=== PATIENT | female | born 1975 | race Caucasian/White ===

== ENCOUNTER 2020-07-17 17:42 | Outpatient (REF) | payer OTHER, SELFPAY ==
--- NOTE | 2020-07-17 | MM_ITS ---
EXAMINATION: MM SCREENING DIGITAL BREAST TOMOSYNTHESIS, BILATERAL CLINICAL INFORMATION: Screening. Asymptomatic. The lifetime risk of breast cancer based on the Tyrer-Cuzick Model is 7%. COMPARISON: Mammography: 07/19/2019, 06/15/2018, 05/15/2017 TECHNIQUE: Digital breast tomosynthesis is performed in both the craniocaudal and mediolateral oblique views along with computer-aided detection (CAD). Synthesized 2D images are generated from the tomosynthesis. FINDINGS: There are scattered areas of fibroglandular density (ACR BI-RADS breast composition Category b). There are no significant masses, abnormal calcifications, or other abnormalities. Parenchymal pattern is similar to prior studies. No developing density. No significant changes. MM/MM tomosynthesis screening BI IMPRESSION: No significant changes from prior study. ASSESSMENT: BI-RADS 1: Negative RECOMMENDATION: Routine annual mammography screening. This patient's information was entered into a reminder system with a target due date for their next mammogram.
== END 2020-07-17 17:43 | disposition home or self-care (01) ==
LOC: HO.MAMMO 17:42
PROVIDERS: PCP Internal Medicine Medical Oncology; Visit Provider Internal Medicine Medical Oncology
DX: Z12.31 Encounter for screening mammogram for malignant neoplasm of breast (principal)
CPT/HCPCS: 77063; 77067

== ENCOUNTER 2020-08-12 11:38 | Outpatient (REF) | payer OTHER, SELFPAY | END 2020-08-12 11:39 | disposition home or self-care (01) | LOC: HO.HMGCLDS 11:38 | PROVIDERS: PCP Internal Medicine Medical Oncology; Visit Provider Internal Medicine Medical Oncology | DX: Z20.828 Contact with and (suspected) exposure to other viral communicable diseases (principal) | CPT/HCPCS: C9803; U0003 ==

== ENCOUNTER 2020-12-17 16:47 | Outpatient (REF) | payer OTHER, SELFPAY | END 2020-12-17 16:48 | disposition home or self-care (01) | LOC: HO.LNP 16:47 | PROVIDERS: Visit Provider Internal Medicine Medical Oncology | DX: J02.9 Acute pharyngitis, unspecified (principal) | CPT/HCPCS: 87071 ==

== ENCOUNTER 2020-12-24 06:51 | Outpatient (REF) | payer OTHER, SELFPAY ==
[2020-12-24 11:15] LABS: MANUAL DIFF FLAG NO
[2020-12-24 11:23] LABS: Basophils Percent Auto 0.3 % (0-2); Eosinophils Absolute Auto 0.2 X10*3/uL (0.0-0.4); Eosinophils Percent Auto 2.5 % (0-4); Hematocrit 41.3 % (37-47); Hemoglobin 13.3 g/dl (12.0-16.0); Imm Gran Abs Auto 0.01 X10*3/uL (0.00-0.03); Imm Gran Pct Auto 0.2 % (0.0-0.4); Lymphocytes Absolute Auto 1.9 X10*3/uL (1.2-4.9); Lymphocytes Percent Auto 29.6 % (20-40); Mean Corpuscular HGB Conc 32.2 g/dl (31.0-35.0); Mean Corpuscular Hemoglobin 28.1 pg (27.0-33.0); Mean Corpuscular Volume 87.1 fL (80-98); Mean Platelet Volume 9.9 fL (9.4-12.3); Monocytes Absolute Auto 0.4 X10*3/uL (0.1-1.2); Monocytes Percent Auto 6.3 % (2-11); Neutrophils Percent Auto 61.1 % (45-73); Platelet Count 291 X10*3/uL (160-400); Red Blood Count 4.74 X10*6/uL (4.20-5.50); Red Cell Distribution Width 12.7 % (11.0-16.0); White Blood Count 6.5 X10*3/uL (4.8-10.8)
[2020-12-24 11:54] LABS: Alanine Aminotransferase 10 U/L (0-31); Albumin Level 4.1 g/dL (3.5-5.0); Alkaline Phosphatase 108 U/L (39-117); Anion Gap 15 (12-20); Aspartate Amino Transferase 14 U/L (5-31); Bilirubin Total 0.3 mg/dL (0.0-1.0); Blood Urea Nitrogen 20 mg/dL (9-16); Calcium 8.8 mg/dL (8.4-10.2); Carbon Dioxide 22 mmol/L (22-29); Chloride 107 mmol/L (96-108); Cholesterol 200 mg/dL; Estimated Glomerular Filt Rate > 60; Glucose Fasting 94 mg/dL (60-99); HDL Cholesterol 45 mg/dL; LDL Cholesterol Calculated 137 mg/dl; Potassium 4.3 mmol/L (3.3-5.1); Sodium 140 mmol/L (135-145); Total Protein 6.9 g/dL (6.5-8.0); Triglycerides 94 mg/dL
[2020-12-24 12:16] LABS: Thyroid Stimulating Hormone 1.61 uIU/mL (0.32-4.0)
== END 2020-12-24 06:52 | disposition home or self-care (01) ==
LOC: HO.HMGCLDS 06:51
PROVIDERS: PCP Internal Medicine Medical Oncology; Visit Provider Internal Medicine Medical Oncology
DX: Z00.00 Encounter for general adult medical examination without abnormal findings (principal); J02.9 Acute pharyngitis, unspecified
CPT/HCPCS: 36415; 80053; 80061; 84443; 85025

== ENCOUNTER 2020-12-28 10:10 | Outpatient (REF) | payer OTHER, SELFPAY ==
--- NOTE | ~2020-12-28 | XR_ITS ---
EXAMINATION: CERVICAL SPINE AND LEFT FOOT X-RAYS CLINICAL INFORMATION: Neck pain radiating down right arm. Left heel pain. COMPARISON: None TECHNIQUE: 3 views of the cervical spine and 2 views of the left foot FINDINGS: Cervical spine: Bone alignment is normal. No fracture or dislocation is seen. There is mild degenerative spondylosis at C4-C5 and C5-C6. Disc spaces are normal. Prevertebral soft tissues are normal. Left foot: Bone alignment is normal. No fracture or dislocation is seen. The joint spaces are normal. There is a plantar calcaneal spur. There may be a soft tissue thickening of the Achilles tendon. There is increased soft tissue attenuation over the calcaneus just inferior to the Achilles tendon insertion. Some of this projects outside the skin surface and may represent overlying soft tissue dressing. Soft tissues are otherwise normal. XR/XR cervical spine 3V IMPRESSION: Cervical spine: Mild degenerative changes. Left foot: Plantar calcaneal spur. Question soft tissue thickening of the Achilles tendon. Question overlying soft tissue dressing over the posterior calcaneus inferior to the Achilles tendon insertion.
--- NOTE | ~2020-12-28 | XR_ITS ---
EXAMINATION: CERVICAL SPINE AND LEFT FOOT X-RAYS CLINICAL INFORMATION: Neck pain radiating down right arm. Left heel pain. COMPARISON: None TECHNIQUE: 3 views of the cervical spine and 2 views of the left foot FINDINGS: Cervical spine: Bone alignment is normal. No fracture or dislocation is seen. There is mild degenerative spondylosis at C4-C5 and C5-C6. Disc spaces are normal. Prevertebral soft tissues are normal. Left foot: Bone alignment is normal. No fracture or dislocation is seen. The joint spaces are normal. There is a plantar calcaneal spur. There may be a soft tissue thickening of the Achilles tendon. There is increased soft tissue attenuation over the calcaneus just inferior to the Achilles tendon insertion. Some of this projects outside the skin surface and may represent overlying soft tissue dressing. Soft tissues are otherwise normal. XR/XR foot LT min 3V IMPRESSION: Cervical spine: Mild degenerative changes. Left foot: Plantar calcaneal spur. Question soft tissue thickening of the Achilles tendon. Question overlying soft tissue dressing over the posterior calcaneus inferior to the Achilles tendon insertion.
== END 2020-12-28 10:11 | disposition home or self-care (01) ==
LOC: HO.XRAY 10:10
PROVIDERS: PCP Internal Medicine Medical Oncology; Visit Provider Internal Medicine Medical Oncology
DX: M79.672 Pain in left foot (principal); M54.2 Cervicalgia
CPT/HCPCS: 72040; 73630

== ENCOUNTER 2023-05-11 15:07 | Outpatient (REF) | payer OTHER, SELFPAY | END 2023-05-11 15:08 | disposition home or self-care (01) | LOC: HO.MAMMO 15:07 | PROVIDERS: PCP Internal Medicine Medical Oncology; Visit Provider Internal Medicine Medical Oncology | DX: Z12.31 Encounter for screening mammogram for malignant neoplasm of breast (principal) | CPT/HCPCS: 77063; 77067 ==

== ENCOUNTER → 2023-05-11 15:15 | Outpatient (BNV) | payer OTHER, SELFPAY | PROVIDERS: PCP Internal Medicine Medical Oncology; Visit Provider Radiology Diagnostic Radiology | DX: Z12.31 Encounter for screening mammogram for malignant neoplasm of breast (principal) | CPT/HCPCS: 77063; 77067 ==

== ENCOUNTER 2025-03-13 15:58 | Outpatient (REF) | payer OTHER, SELFPAY ==
--- OUTSIDE RECORDS SUMMARY | 2024-12-27 11:00 | XMS_ITS ---
Author Organization Demetrius Shell III, MD Address [address] [place] [address] Care Team Providers Care Bilingual Loan Processor Name Role Phone Demetrius Shell Primary Care Provider Allergies Allergen (clinical drug ingredient) Drug/Non Drug Allergy documented on EMR Reaction Allergy Type Onset Date Status No Known Drug Allergy Unknown Drug Allergy Active No Known Food Allergy Unknown Drug Allergy Active Seasonale Unknown Drug Allergy Active Reason For Referral Reason yearly pelvic and pa p smear Diagnosis 1 Physical exam, annua l (Z00.00) Referral Organization Demetrius Shell III, MD Referring Provider First Name Demetrius Referring Provider Last Name Sumaya Referring Provider Speciality Internal M edicine Referred Provider [facility] Referred Provider Specialty OB - Gynecol ogy General Notes Whitley Cole CMA 12/27 04:08:37 PM >Called Dr Judy Dubon office [phone] made patient appt for 01/29/2025 at 3pm information for this appt mailed to patient Referral Priority Routine Referral Appointment Date 01/29/2025 Reason colonoscopy consult Diagnosis 1 Gastroesophageal ref lux disease without esophagitis (K21.9) Referral Organization Demetrius Shell III, MD Referring Provider First Name Demetrius Referring Provider Last Name Sumaya Referring Provider Speciality Internal M edicine Referred Provider [facility], Gastroenterology Referred Provider Specialty Gastroentero logy General Notes S Whitley BAM 01/01 01:35:37 PM >ref/progress note faxed to [facility] Referral Priority Routine REASON FOR VISIT Annual Exam Social History Tobacco Use: Social History Observation Description Date Details (start date - stop date) Never Smoker NA - NA Sex Assigned At : Social History Observation Description Sex Assigned At Female Tobacco Control (Standard) Question Answer Notes Tobacco use: Nonsmoker Additional Findings: Tobacco non-user Aggressive nonsmoker AUDIT-C (Standard) Question Answer Notes Did you have a drink contain ing alcohol in the past year? Yes How often did you have six o r more drinks on one occasion in the past year? 2 to 4 times a month (2 points) How many drinks did you have on a typical day when you were drinking in the past year? 1 or 2 drinks (0 point) How often did you have a dri nk containing alcohol in the past year? Never (0 point) Points 2 Interpretation Negative Vital Signs Temperature 98.1 degrees Fahrenheit 12/28/19 25 Blood pressure systolic 142 mm Hg 12/28/19 25 Blood pressure diastolic 87 mm Hg 025 Heart Rate 74 /min 12/27/2024 Height 64 in 12/27/2024 Weight 243 lbs 12/27/2024 BMI 41.71 kg/m2 12/27/2024 Encounters Encounter Location Date Provider Diagnosis Demetrius Shell III, MD [address] [place] [address] [place] [address] 12/27/2024 Demetrius Shell Gastroesophageal ref lux disease without esophagitis K21.9 ; Other obesity due to excess calories E66.09 ; Screening mammogram for breast cancer Z12.31 and Spondylosis of cervical spine M47.812 Assessments Encounter Date Diagnosis (ICD Code) Assessment Notes Treat ment Notes Treatment Clinical Notes 12/27/2024 Gastroesophageal reflux disease without esophagitis (ICD-10 - K21.9) Her esophageal reflux is well controlled with [id number]-[id number] medication. 12/27/2024 Other obesity due to excess calories (ICD-10 - E66.09) Since her last visit she has gained 12 pounds. Body mass index is now 41.7. We discussed diet and nutrition today. We discussed the alternatives to surgery for weight loss. She does not wish to take medication at this time or to have a surgical procedure. Is going to exercise and reduce her caloric intake. 12/27/2024 Screening mammogram for breast cancer (ICD-10 - Z12.31) 12/27/2024 Spondylosis of cervical spine (ICD-10 - M47.812) This has been a problem for several years but it intensified lately. I have recommended heat and rest and naproxen. It is not severe enough to recommend a cervical collar. If it does not improve she will be referred for injections. Plan Of Treatment Pending Test Test Name Order Date PROFILE, FASTING (COMPREHENSIVE METABOLI C) 12/27/2024 CBC w DIFF 12/27/2024 Lipid Panel 12/27/2024 MM screening mammo BI 12/27/2024 Referrals Referral Date Details 12/27/2024 12/27/2024, yearly p elvic and pap smear, [facility] 12/27/2024 12/27/2024, colonosc opy consult, Gastroenterology [facility] Next Appt Details Follow Up: 1 Year, Reason: a nnual exam review labs Provider Name:Demetrius Shell, 12/31/2025 03:00:00 PM, [address] [place] [address] [address] [place], [place], [address], Progress Notes * Genet ATKINSDOB:1974 (49 yo F)Acc No.[id number]:12/27/2024 Progress Notes Patient: Genet CONDE Provider: Victoriano Shell MD :1975 A ge:49 Y S ex:Female Date:12/27/2024 Address:[address] [place], [place] [id number] Subjective: * Chief Complaints: * A nnual Exam * HPI: D epression Screening: She returns to the office at the age of 49 for her annual physical examination. She is overdue for her BREAKER OPERATOR examination a general operator work from the [facility] with an office [address] and was [place]. We are scheduling a visit for her was in near future. She is due for mammogram and this has been scheduled. She had no new complaints today. The pain in her neck has resolved and it feels fine. Her appetite is good and she is sleeping well.? She has no pain. We discussed colonoscopy. She was given a requisition for comprehensive blood work to be done in the near future. PHQ-9 L ittle interest or pleasure in doing things?Not at all F eeling down, depressed, or hopeless N ot at all T rouble falling or staying asleep, or sleeping too much S everal days F eeling tired or having little energy N ot at all P oor appetite or overeating N ot at all F eeling bad about yourself or that you are a failure, or have let yourself or your family down N ot at all T rouble concentrating on things, such as reading the newspaper or watching television N ot at all M oving or speaking so slowly that other people could have noticed; or the opposite, being so fidgety or restless that you have been moving around a lot more than usual N ot at all T houghts that you would be better off or of hurting yourself in some way N ot at all T otal Score 1 I nterpretation M inimal Depression C OVID-19 Screening: Questions H ave you had any new onset fever, chills, cough, congestion, sore throat, shortness of breath, muscle aches? N o S MINGO Questions: SDOH Questions I n the past year have you been worried about losing your housing? N o I n the past year have you or any family members you live with been unable to get any of the following when it was really needed? Check all that apply: N one * ROS: G eneral/Constitutional: pain o nly normal aches and pains. C hills d enies.?Fatigue a dmits. F ever d enies. E NT: Decreased hearing d enies. R espiratory: Cough d enies. C ardiovascular: Chest pain with exertion d enies. D yspnea on exertion?denies. S hortness of breath d enies. G astrointestinal: Constipation o ccasional. D ecreased appetite d enies. D iarrhea d enies. H eartburn c ontrolled with medications. N ausea d enies. R ectal bleeding d enies. V omiting d enies. H ematology: bruising d enies. p etechiae d enies. S wollen glands n one have been noted. G enitourinary: Frequent urination d enies. M usculoskeletal: Muscle aches d enies. P ainful joints d enies. S ciatica d enies. W eakness d enies. S kin: Itching d enies. R pradeep d enies. S kin lesion(s)?denies. N eurologic: Difficulty speaking d enies. D izziness d enies.?Headache d enies. L ow back pain d enies. P sychiatric: Depressed mood d enies. * Medical History: * Surgical History: D enies Past Surgical History * Hospitalization/Major Diagno stic Procedure: D enies Past Hospitalization * Family History: F ather: 63 yrs, hypertension, obesity. M other: alive 54 yrs, hypertension, hyperlipidemia, brain cancer. P aternal Grand Father: , stomach cancer. M aternal Grand Father: , lung cancer. M aternal Grand Mother: stomach cancer. M aternal uncle: , colon cancer. S pouse: alive. 1 brother(s) - healthy. 3 daughter(s) - healthy. . A great paternal aunt diagnosed with breast cacner. * Social History: T obacco Use: T obacco Control (Standard) T obacco use: N onsmoker A dditional Findings: Tobacco non-user A ggressive nonsmoker D rugs/Alcohol: D rugs H ave you used drugs other than those for medical reasons in the past 12 months? N o D rug/Alcohol: A KWASI-C (Standard) D id you have a drink containing alcohol in the past year? Y es H ow often did you have six or more drinks on one occasion in the past year? 2 to 4 times a month (2 points) H ow many drinks did you have on a typical day when you were drinking in the past year? 1 or 2 drinks (0 point) H ow often did you have a drink containing alcohol in the past year? N ever (0 point) P oints 2 I nterpretation N egative S he was born in [place], [place]. * Medications: D iscontinuedPriLOSEC 40 mg Capsule Delayed Release 1 capsule Orally Once a day Benzonatate 100 MG Capsule 1 capsule as needed Orally Three times a day predniSONE 50 MG Tablet 1 tablet Orally Once a day Fluticasone Propionate 50 MCG/ACT Suspension 1 spray in each nostril Nasally Once a day Ciprofloxacin-dexAMETHasone 0.3-0.1 % Suspension 4 drops into affected ear Otic Twice a day Medication List reviewed and reconciled with the patientDiscontinued PriLOSEC 40 mg Capsule Delayed Release 1 capsule Orally Once a day Discontinued Benzonatate 100 MG Capsule 1 capsule as needed Orally Three times a day Discontinued predniSONE 50 MG Tablet 1 tablet Orally Once a day Discontinued Fluticasone Propionate 50 MCG/ACT Suspension 1 spray in each nostril Nasally Once a day Discontinued Ciprofloxacin-dexAMETHasone 0.3-0.1 % Suspension 4 drops into affected ear Otic Twice a day Medication List reviewed and reconciled with the patient * Allergies: N o Known Drug AllergySeasonaleNo Known Food Allergyno[Allergies Verified] Objective: * Vitals: H t: 64, Wt: 243, BMI:41.71, BP: 142/87, HR: 74, Temp: 98.1, Wt-k.22. * Examination: G eneral Examination: GENERAL APPEARANCE: p leasant, well nourished, well developed, in no acute distress, calm and relaxed, morbidly obese, man. HEAD: a traumatic, normocephalic. EYES: e damián, perrla, anicteric, conjugate. EARS: n ormal. NOSE: s eptum intact. ORAL CAVITY: n ormal, unremarkable. NECK/THYROID: n o jugular venous distention, no carotid bruit, thyroid normal. LYMPH NODES: n o enlarged lymph nodes,spleen normal. SKIN: n o suspicious lesions, anicteric. HEART: n o clicks, gallops, murmurs, or rubs, regular rhythm, S1, S2 normal, no s3, or vascular bruits. LUNGS: c lear to auscultation . BREASTS: N ot examined Patient prefers her general operator to do this.. ABDOMEN: b owel sounds normal, no ascites, no organomegaly, no mass, morbid obesity. RECTAL EXAM: D eferred to general operator at her request. MUSCULOSKELETAL: e xtremities unremarkable, no clubbing, cyanosis or edema, Trace decreased range of motion. PERIPHERAL PULSES: n ormal. NEUROLOGIC: a lert and oriented, cranial nerves 2-12 grossly intact, deep tendon reflexes 2+ symmetrical, motor strength normal upper and lower extremities, sensory exam intact. PSYCH: a lert, oriented. Assessment: * Assessment: 1. O ther obesity due to excess calories - E66.09 (Primary) N otes :Since her last visit she has gained 12 pounds. Body mass index is now 41.7. We discussed diet and nutrition today. We discussed the alternatives to surgery for weight loss. She does not wish to take medication at this time or to have a surgical procedure. Is going to exercise and reduce her caloric intake. 2 . G astroesophageal reflux disease without esophagitis - K21.9 ?Notes :Her esophageal reflux is well controlled with [id number] medication. 3 . S creening mammogram for breast cancer - Z12.31 4 . S pondylosis of cervical spine - M47.812 N otes :This has been a problem for several years but it intensified lately. I have recommended heat and rest and naproxen. It is not severe enough to recommend a cervical collar. If it does not improve she will be referred for injections. Plan: * Treatment: 2. G astroesophageal reflux disease without esophagitis L AB: PROFILE, FASTING (COMPREHENSIVE METABOLIC) L AB: CBC w DIFF L AB: Lipid Panel Referral To:Gastroenterology [facility] Gastroenterology Reason:colonoscopy consult 3. S creening mammogram for breast cancer I maging: MM screening mammo BI 4. O thers Referral To:[facility] OB - Gynecology Reason:yearly pelvic and pap smear * Procedure Codes: * Preventive Medicine: Counseling: C are goal follow-up plan: Counseling for abnormal BMI given Y es Above Normal BMI Follow-up D ietary management education, guidance, and counseling, Dietary needs education, Exercise promotion: strength training, Exercise promotion: stretching, Feeding regime, Giving encouragement to exercise, Lifestyle education regarding diet, Nutrition / feeding management, Nutrition therapy, Prescribed activity/exercise education, Prescribed diet education, Prescribed dietary intake, Special diet education, Weight monitoring , Intervention, Order not done: Medical or Other reason not done * Follow Up: 1 Year (Reason: annual exam review labs) * Images: * Sign off status: Completed true * Provider: Victoriano Shell MD Date: 12/27/2024 Generated for José musa/Jeniffer/Mike on: 03/13/2025 04:42 PM EDT History and Physical Notes * HPI (History of Present Illness) Category Sub-Category Detail Notes Depression Screening PHQ-9 Little inte rest or pleasure in doing things: Not at all Feeling down, depressed, or hopeless: No t at all Trouble falling or staying asleep, or sl eeping too much: Several days Feeling tired or having little energy: N ot at all Poor appetite or overeating: Not at all Feeling bad about yourself o r that you are a failure, or have let yourself or your family down: Not at all Trouble concentrating on thi ngs, such as reading the newspaper or watching television: Not at all Moving or speaking so slowly that other people could have noticed; or the opposite, being so fidgety or restless that you have been moving around a lot more than usual: Not at all Thoughts that you would be b leigh off or of hurting yourself in some way: Not at all Total Score: 1 Interpretation: Minimal Depression COVID-19 Screening Questions Have you had any new onset fever, chills, cough, congestion, sore throat, shortness of breath, muscle aches?: No SDOH Questions SDOH Questions In the past year have you been worried about losing your housing?: No In the past year have you or any family members you live with been unable to get any of the following when it was really needed? Check all that apply:: None Examination Category Sub-Category Detail Notes General Examination GENERAL APPEARANCE: pleasant , well nourished, well developed, in no acute distress, calm and relaxed, morbidly obese, man HEAD: atraumatic, normocep halic EYES: eomi, perrla, anicte victor m, conjugate EARS: normal NOSE: septum intact NECK/THYROID: no jugular venous di stention, no carotid bruit, thyroid normal HEART: no clicks, gallops, murmurs, or rubs, regular rhythm, S1, S2 normal, no s3, or vascular bruits LUNGS: clear to auscultatio n ABDOMEN: bowel sounds normal, no ascites, no organomegaly, no mass, morbid obesity NEUROLOGIC: alert and oriented, cranial nerves 2-12 grossly intact, deep tendon reflexes 2+ symmetrical, motor strength normal upper and lower extremities, sensory exam intact SKIN: no suspicious lesion s, anicteric PERIPHERAL PULSES: normal BREASTS: Not examined Patient prefers her general operator to do this. MUSCULOSKELETAL: extremities unremark able, no clubbing, cyanosis or edema, Trace decreased range of motion LYMPH NODES: no enlarged lymph no juan,spleen normal RECTAL EXAM: Deferred to gynecolo gist at her request PSYCH: alert, oriented ORAL CAVITY: normal, unremarkable Consultation Request Notes Referral Date Referring Provider Referred Provider Not es 12/27/2024 Demetrius Shell [facility], [facility] y early pelvic and pap smear 12/27/2024 Demetrius Shell [facility], Gastroenterology colonoscopy consult
--- OUTSIDE RECORDS SUMMARY | 2025-03-13 16:42 | XMS_ITS | Patient Health Record ---
Author Organization [facility] Address [address] [place] [address] Care Team Providers Care Reduction Plant Supervisor Name Role Phone Demetrius Shell MD Primary Care Provider UnavailRobson Garza Unavailable [phone] Allergies No Known Allergies Reason For Referral No Information Medications Medication SIG (Take, Route, Frequency, Duration) Notes Start Date End Date Status Flonase Active Prednisone Active Immunizations Vaccine Route Administration Date Status Comme nts COVID-19 Pfizer BioNTech Vaccine Unknown 10/27/2020 Adm inistered COVID-19 Pfizer BioNTech Vaccine Unknown 11/17/2020 Adm inistered Social History Tobacco Use: Social History Observation Description Date Details (start date - stop date) Never Smoker NA - NA Tobacco Use/Smoking Question Answer Notes Are you a: nonsmoker Additional Findings: Tobacco Non-User Current no n-smoker Alcohol Screen Question Answer Notes Did you have a drink contain ing alcohol in the past year? Yes How often did you have a dri nk containing alcohol in the past year? 2 to 4 times a month (2 points) Points 2 Interpretation Negative Tobacco use other than smoking: Question Answer Notes Are you an other tobacco user? No Plan Of Treatment Pending Test Test Name Order Date X ray : Foot, left 3V 05/06/2021 X ray : Foot, right 3V 05/06/2021 Insurance Providers Payer Name Payer Address Payer Phone Subscriber Number Group Number Insured Name Patient Relationship to Insured Coverage Start Date Coverage End Date [employer] ([facility]) [address] [place] [id number] [place] Self - patient is the insured Medical (General) History Medical History History ICD Code Chicken pox Surgical History Surgery Date(Month/Year)
--- OUTSIDE RECORDS SUMMARY | 2025-03-13 16:43 | XMS_ITS | Continuity of Care Document ---
Author Organization [facility] Address [address] [place] [address] Care Team Providers Care Java Technical Manager Name Role Phone Demetrius Shell Primary Care Provider [phone] Encounters Date Type Department Care Team Description 05/01/2021 1:15 PM EDT Office Visit [address] [address] Ginny Bazan PA Dysfunction of left eustachian tube (Primary Dx); Viral URI Medications No known medications Immunizations Immunization Administration Dates Next Due COVID-19, mRNA (Pfizer Pre F all 2022) Monovalent, 30 mcg/0.3 ml 11/17/2020,10/27/2020 Influenza,injectable,MDCK, Prsrv Fr,Quad 020 Influenza,injectable,quad,Prsrv Fr 06/13/2018 Social History Smoking Status as of 03/13/2025 Tobacco Use Types Packs/Day Years Used Date Smoking Tobacco: Never Assessed Sex and Gender Information Value Date Recorded Sex Assigned at Not on file Legal Sex Female 1:05 PM EDT Gender Identity Not on file Sexual Orientation Not on file Last Filed Vital Signs Vital Sign Reading Time Taken Comments Blood Pressure 137/90 05/01/2021 1:14 PM EDT Pulse 69 05/01/2021 1:14 PM EDT Temperature 37.2 C (98.9 F) 05/01/2021 1:14 PM EDT Respiratory Rate - - Oxygen Saturation 99% 05/01/2021 1:14 PM EDT Inhaled Oxygen Concentration - - Weight - - Height - - Body Mass Index - - Plan of Treatment Not on file Procedures * Due to [place] state law, this organization might not be sharing negative HIV tests. Procedure Name Priority Date/Time Associated Diagnosis Comments CULTURE, THROAT Routine 05/01/2021 1:44 PM EDT Dysfunction of left eustachian tube Viral URI Results * Due to [place] state law, this organization might not be sharing negative HIV tests. * CULTURE, THROAT (05/01/2021 1:44 PM EDT) Bacteria culture (Throat) SEE NOTE [facility] Comment: CULTURE, THROAT Micro Number: [id number] Test Status: Final Specimen Source: Throat Specimen Quality: Adequate Result: No oropharyngeal pathogens recovered. 05/01/2021 1:44 PM EDT 05/01/2021 9:59 PM EDT Narrative Resulting Agency Comment [id number] [facility] Final Resu lt Performing Organization Address City/State/[facility] Co de Phone Number [facility] [address] [place] [address] Visit Diagnoses Diagnosis Start Date Dysfunction of left eustachian tube Dysfunction of Eustachian tube 05/01/2021 Viral URI Acute upper respiratory infections of unspecified site 05/01/2021 Care Teams Java Technical Manager Relationship Specialty Start Date End Date Demetrius Shell [address] [place] [phone] PCP - General Internal Medicine 05/01/21
--- OUTSIDE RECORDS SUMMARY | 2025-03-13 16:43 | XMS_ITS | Patient Health Record ---
Author Organization [email or web address] [facility] Address [address] [place] [address] Care Team Providers Care Semi Driver Name Role Phone CHAD FERNANDEZ MD Primary Care Provider Unavailab GABINO Horn Unavailable [phone] Allergies No Known Allergies Results Component Value Reference Range Notes Test, Urine Reviewed date:03/05/2025 05:51:34 PM Interpretation: Performing Lab: Notes/Report: Test, Urine NEG PDF Report Reviewed date:02/01/2025 09:50:48 AM Interpretation: Performing Lab:[facility], [address], [address], [place], Phone - [phone], [facility] Notes/Report: Clinical Information:VAG/CERV [id number] LMP / Prev Treat...[id number] Dates / Results....2018 No. of containers..01 ThinPrep Vial [id number] IGP No Culture 30 Plus Reviewed date:02/01/2025 09:44:25 AM Interpretation: Performing Lab:[facility], [address], [address], [place], Phone - [phone], Director - [facility] Notes/Report: Clinical Information:VAG/CERV [id number] LMP / Prev Treat...[id number] Dates / Results....2018 No. of containers..01 ThinPrep Vial DIAGNOSIS: NEGATIVE FOR IN TRAEPITHELIAL LESION OR MALIGNANCY. Specimen adequacy: Satisfactory for evaluation. Endocervical and/or squamous metaplastic cells (endocervical component) are present. Clinician provided ICD10: Z0 1.419 Performed by: Maryana Nation ytologist (ASCP) . . Note: The Pap smear is a screening test designed to aid in the detection of premalignant and malignant conditions of the uterine cervix. It is not a diagnostic procedure and should not be used as the sole means of detecting cervical cancer. Both false-positive and false-negative reports do occur. . Test Methodology: This liquid based ThinPrep(R) pap test was screened with the use of an image guided system. HPV Aptima Negative Negative This nucleic acid amplification test detects fourteen high-risk HPV types (16,18,31,33,35,39,45,51,52,56,58 ,59,66,68) without differentiation. HPV Genotype Reflex Criteria not met, HPV Genotype not performed. Reason For Referral No Information Medications Medication SIG (Take, Route, Fr equency, Duration) Notes Start Date End Date Status Prometrium 200 MG 2 capsules at bedtim e Orally Once a day; Duration: 12 days 03/05/2025 Active Social History Tobacco Use: Social History Observation Description Date Details (start date - stop date) Never Smoker NA - NA Tobacco Use/Smoking Question Answer Notes Are you a nonsmoker Sexual History Question Answer Notes Had sex in the past 12 months (vaginal, oral, or anal)? Yes with Men only Prevention strategies discussed: Other AUDIT-C (Standard) Question Answer Notes Did you have a drink contain ing alcohol in the past year? Yes How often did you have a dri nk containing alcohol in the past year? 2 to 3 times a week (3 points) How many drinks did you have on a typical day when you were drinking in the past year? 1 or 2 drinks (0 point) How often did you have six o r more drinks on one occasion in the past year? Less than monthly (1 point) Points 4 Interpretation Positive Problems Problem Type SNOMED Code ICD Code Onset Dates Problem Status W/U Status Risk Notes Problem Abnormal uterine bleeding (639831860616 00) Abnormal uterine and vaginal bleeding, unspecified (N93.9) Active confirmed Problem Body mass index 40+ - severely obese (350417776) Body mass index [BMI] 40.0-44.9, adult (Z68.41) Active confirmed Vital Signs Temperature 97.7 degrees Fahrenheit 03/05/2025 Blood pressure diastolic 82 mm Hg 03/05/2025 Height 63 in 03/05/2025 Blood pressure systolic 128 mm Hg 03/05/2025 Weight 240 lbs 03/05/2025 BMI 42.51 kg/m2 03/05/2025 Encounters Encounter Location Date Provider Diagnosis [address] [address] 01/29/2025 GABINO JENKINS Encounter for gynecological examination (general) (routine) without abnormal findings Z01.419 and Encounter for screening mammogram for malignant neoplasm of breast Z12.[address] [address] 03/05/2025 GABINO JENKINS Abnormal uterine and vaginal bleeding, unspecified N93.9 and Body mass index [BMI] 40.0-44.9, adult Z68.[address] [address] 02/28/2025 GABINO JENKINS Assessments Encounter Date Diagnosis (ICD Code) Assessment Notes Treatment Notes Treatment Clinical Notes Section Notes 01/29/2025 Encounter for gynecological examination (general) (routine) without abnormal findings (ICD-10 - Z01.419) During the visit, the following areas of concern were addressed: Discussed cervical cancer screening with either cytology alone every 3 years or high risk HPV co-testing every 5 years as per ASCCP guidelines. Advised continued annual pelvic exams. Patient encouraged to increase her level of exercise. SBE technique encouraged/taug ht. Patient reminded when annual mammogram is due. Patient encouraged to keep colon screening up to date. 01/29/2025 Encounter for screening mammogram for malignant neoplasm of breast (ICD-10 - Z12.31) 03/05/2025 Abnormal uterine and vaginal bleeding, unspecified (ICD-10 - N93.9) Likely anovulatory cycle - reviewed physiology using diagrams of normal and anovulatory cycles. Menses should return to normal. If bleeding restarts in the next couple of days, encouraged to take 12 days of Prometrium. Offered endometrial biopsy to prove benign endometrium - declines today, but if bleeding continues to be erratic, would recommend HSONO with embx. Pt has had endometrial biopsy in the past and would like to wait to see if periods return to normal before enduring that discomfort again. 03/05/2025 Body mass index [BMI] 40.0-44.9, adult (ICD-10 - Z68.41) Plan Of Treatment Pending Test Test Name Order Date Sonohysterogram 07/10/2021 THIN PREP,HPV,LOVELY IF HPV+ (>29YR)(SCRN) 11/15/2017 MM Digital Mammo Screening 11/15/2017 MM Digital Screening Mammogram 3D 2018 MM Digital Screening Mammogram 3D 2020 MM Digital Screening Mammogram 3D 2024 Next Appt Details Provider Name:GABINO Cole, 02/04/2026 03:00:00 PM, [address] [facility], [address], [place], [address], Insurance Providers Payer Name Payer Address Payer Phone Subscriber Number Group Number Insured Name Patient Relationship to Insured Coverage Start Date Coverage End Date [facility] [address] [place] [id number] [phone] [id number] SONAM ATKINS Spouse - patient is the spouse of the insured Medical (General) History Surgical History Surgery Date(Month/Year) Hospitalization History Reason Date(Month/Year) 3 Vaginal Deliveries
--- OUTSIDE RECORDS SUMMARY | 2025-03-13 16:43 | XMS_ITS | Clinical Summary ---
Author Organization [address] Address [address] [place] [address] Phone Care Team Providers Care Tug Captain Name Role Phone Demetrius Shell MD Primary Care Provider [phone] Allergies Active Allergy Reactions Criticality Noted Date Comments Levonorgestrel-Ethinyl Estrad 2024 Medications omeprazole (PriLOSEC) [address] capsule Take 1 capsule (40 mg total) by mouth 1 (one) time each day. Do not crush or chew. Active benzonatate (TESSALON) 100 mg capsule Take 1 capsule (100 mg total) by mouth 3 (three) times a day if needed for cough. Do not crush or chew. Active predniSONE (DELTASONE) 50 mg tablet Take 1 tablet (50 mg total) by mouth 1 (one) time each day. Active fluticasone propionate (FLONASE) 50 mcg/actuation nasal spray Administer 1 spray into each nostril 1 (one) time each day. Shake gently. Before first use, prime pump. After use, clean tip and replace cap. Active ciprofloxacin-d exAMETHasone (CIPRODEX) otic suspension 4 drops 2 (two) times a day. Active Encounters Date Type Department Care Team Description 01/03/2025 Telephone Gastroenterology - [address] [place] [phone] Petra Duque MD from Last 3 Months Social History Tobacco Use Types Packs/Day Years Used Date Smoking Tobacco: Never Assessed Comments Unknown Sex and Gender Information Value Date Recorded Sex Assigned at Not on file Legal Sex Female 8:21 AM EDT Gender Identity Not on file Sexual Orientation Not on file Plan of Treatment Health Maintenance Due Date Last Done Comments Breast Cancer Screening 1977 DTaP,Tdap,and Td Vaccines (1 - Tdap) 1996 Hepatitis B Vaccines (1 of 3 - 19+ 3-dose series) 1996 Cervical Cancer Screening: P ap Smear 1998 COVID-19 Vaccine ( - 2023-2 5 season) 2024 Colorectal Cancer Screening: Colonoscopy 01/03/2025 Depression Screening 01/03/2025 HIV Screening 01/03/2025 Hepatitis C Screening 01/03/2025 Social Influencers of Health Screening 01/03/2025 Influenza Vaccine (#1) 2025 HIB Vaccines Aged Out No longer eligi ble based on patient's age to complete this topic HPV Vaccines Aged Out No longer eligi ble based on patient's age to complete this topic Hepatitis A Vaccines Aged Out No long er eligible based on patient's age to complete this topic IPV Vaccines Aged Out No longer eligi ble based on patient's age to complete this topic MMR Vaccines Aged Out No longer eligi ble based on patient's age to complete this topic Meningococcal ACWY Vaccine Aged Out N o longer eligible based on patient's age to complete this topic Meningococcal B Vaccine Aged Out No l onger eligible based on patient's age to complete this topic Pneumococcal Vaccine: Pediat rics (0 to 5 Years) and At-Risk Patients (6 to 49 Years) Aged Out No longer eligible b ased on patient's age to complete this topic RSV Immunization Patients Un dejah 20 months Aged Out No longer eligible b ased on patient's age to complete this topic Varicella Vaccines Aged Out No longer eligible based on patient's age to complete this topic Insurance Uniplaces Care Teams Tug Captain Relationship Specialty Start Date End Date Demetrius Shell MD [address] [facility] [address] [place] [address] PCP - General Oncology 01/03/25
== END 2025-03-13 15:59 | disposition home or self-care (01) ==
LOC: HO.MAMMO 15:58
PROVIDERS: PCP Internal Medicine Medical Oncology; Visit Provider Internal Medicine Medical Oncology
DX: Z12.31 Encounter for screening mammogram for malignant neoplasm of breast (principal)
CPT/HCPCS: 77063; 77067

== ENCOUNTER → 2025-03-13 16:15 | Outpatient (BNV) | payer OTHER, SELFPAY | PROVIDERS: PCP Internal Medicine Medical Oncology; Visit Provider Radiology Body Imaging | DX: Z12.31 Encounter for screening mammogram for malignant neoplasm of breast (principal) | CPT/HCPCS: 77063; 77067 ==